=== PATIENT | female | born 1975 | race Hispanic/Latino ===

== ENCOUNTER 2019-06-28 08:20 | Emergency (ER) | payer BC, OTHER ==
[2019-06-28 09:36] LABS: APPEARANCE,URINE Clear (CLEAR); BILIRUBIN,URINE Negative (NEGATIVE); COLOR,URINE Yellow (YELLOW); GLUCOSE, URINE (UA) Negative (NEGATIVE); KETONES,URINE Negative (NEGATIVE); LEUKOCYTE ESTERASE ,URINE Negative (NEGATIVE); NITRATE,URINE Negative (NEGATIVE); OCCULT BLOOD,URINE Negative (NEGATIVE); PH,URINE 5.5 (5.0-8.0); PROTEIN,URINE Negative (NEGATIVE); UROBILINOGEN,URINE 0.2 mg/dL (0.2-1.0)
[2019-06-28] MEDS ORDERED: KETOROLAC TROMETHAMINE 60 MG/2 ML VIAL ONE (09:38)
[2019-06-28 09:39] LABS: HCG,QUAL RESULT NEGATIVE (NEGATIVE)
[2019-06-28] MEDS ORDERED: ONDANSETRON ODT 4 MG TAB ONE (09:39)
== END 2019-06-28 10:39 | disposition home or self-care (01) ==
LOC: EDH 08:20
DX: M62.830 Muscle spasm of back (principal); M54.5 Low back pain; Z87.891 Personal history of nicotine dependence
CPT/HCPCS: 81003; 81025; 96372; 99284; J1885